=== PATIENT | female | born 1990 | race Caucasian/White ===

== ENCOUNTER 2018-10-18 14:12 | Emergency (ER) | payer SELFPAY ==
[2018-10-18 14:46] LABS: Bilirubin Small (Negative); Blood, Urine Negative (Negative); Glucose, Urine (Dipstick) Negative (Negative); Leukocyte Negative (Negative); Nitrite Negative (Negative); Protein, Urine (Dipstick) Trace mg/dL (Neg-Trace); Urobilinogen 0.2 mg/dL (0.2-1.0); pH, Urine 5.5 (5.0-9.0)
[2018-10-18 14:47] LABS: Clarity SL HAZY (Clear)
[2018-10-18 14:48] LABS: Specific Gravity, Urine 1.031 (1.002-1.036)
[2018-10-18 14:49] LABS: Pregnancy Test - Urine (BHCG) POSITIVE (Negative); Pregu Control Background? CLEAR/WHITE (CLR/WHITE); Pregu Control Bar Appear? YES (CONTROL BAR); Specific Gravity 1.031 (1.002-1.036)
== END 2018-10-18 15:33 | disposition home or self-care (01) ==
LOC: NAV ERS 14:12
DX: O21.8 Other vomiting complicating pregnancy (principal); O99.341 Other mental disorders complicating pregnancy, first trimester; F41.9 Anxiety disorder, unspecified; F32.9 Major depressive disorder, single episode, unspecified; O99.331 Smoking (tobacco) complicating pregnancy, first trimester; F17.290 Nicotine dependence, other tobacco product, uncomplicated; Z3A.01 Less than 8 weeks gestation of pregnancy
CPT/HCPCS: 81003; 81025; 99284

== ENCOUNTER 2023-03-23 04:49 | Emergency (ER) | payer SELFPAY ==
[2023-03-23] MEDS ORDERED: Lidocaine Viscous Sol 2% 15 ml UD Cup ONE (05:16)
[2023-03-23] MEDS ORDERED: Morphine 4 MG/ML VIAL ONE (05:46)
[2023-03-23] MEDS ORDERED: Promethazine HCl 25 MG/ML VIAL ONE (05:46)
== END 2023-03-23 06:42 | disposition home or self-care (01) ==
LOC: NAV ERS 04:49
DX: K02.9 Dental caries, unspecified (principal); K03.81 Cracked tooth; F17.290 Nicotine dependence, other tobacco product, uncomplicated
CPT/HCPCS: 96372; 99282; J2270; J2550